=== PATIENT | female | born 1960 | race Caucasian/White ===

== ENCOUNTER 2018-06-02 08:38 | Emergency (ER) | payer SELFPAY, BC ==
[2018-06-02] MEDS: ONDANSETRON (ODT) 4 MG TAB ODT (09:12)
[2018-06-02] MEDS: ACETAMINOPHEN 325 MG TAB PO (09:12)
[2018-06-02 09:16] LABS: URINE BLOOD (Dip) POC 2+ (NEGATIVE); URINE GLUCOSE (Dip) POC Negative (NEGATIVE); URINE KETONES (Dip) POC Negative (NEGATIVE); URINE LEUKOCYTE EST (Dip) POC 3+ (NEGATIVE); URINE NITRITE (Dip) POC Positive (NEGATIVE); URINE TOTAL PROTEIN POC 1+ (NEGATIVE)
[2018-06-02] MEDS: LIDOCAINE 1% (MPF) 30 ML INJ INJ (10:00)
[2018-06-02] MEDS: LIDOCAINE 1% (MDV) 20 ML INJ SC (10:01)
[2018-06-02] MEDS: CEFTRIAXONE 1 GM INJ IM (10:06)
== END 2018-06-02 10:29 | disposition home or self-care (01) ==
LOC: FTE 08:38
DX: N30.00 Acute cystitis without hematuria (principal); Z87.891 Personal history of nicotine dependence
CPT/HCPCS: 81003; 96372; 99284-25